=== PATIENT | female | born 1965 | race Caucasian/White ===

== ENCOUNTER 2023-04-16 10:41 | Outpatient (CLI) | payer MEDICARE ==
[~2023-04-16 10:41] MED LIST: Iopamidol 370 76% 100 ML VIAL ONE
== END 2023-04-16 10:42 | disposition home or self-care (01) ==
LOC: BICCT 10:41
PROVIDERS: ATTEND Radiology Radiation Oncology
DX: C05.1 Malignant neoplasm of soft palate (principal); I70.8 Atherosclerosis of other arteries
CPT/HCPCS: 70491; 71260

== ENCOUNTER 2023-04-24 08:59 | Outpatient (CLI) | payer MEDICARE | END 2023-04-24 09:00 | disposition home or self-care (01) | LOC: SCSMRI 08:59 | PROVIDERS: ATTEND Radiology Radiation Oncology | DX: C05.1 Malignant neoplasm of soft palate (principal) | CPT/HCPCS: 70543 ==

== ENCOUNTER 2023-10-22 12:30 | Outpatient (CLI) | payer MEDICARE | END 2023-10-22 12:31 | disposition home or self-care (01) | LOC: PET 12:30 | PROVIDERS: ATTEND Radiology Radiation Oncology | DX: C05.1 Malignant neoplasm of soft palate (principal); R59.0 Localized enlarged lymph nodes | CPT/HCPCS: 78815; A9552 ==

== ENCOUNTER 2023-11-01 09:37 | Outpatient (CLI) | payer MEDICARE ==
[2023-11-01] MEDS ORDERED: Iopamidol 370 76% 100 ML VIAL ONE (11:41)
== END 2023-11-01 09:38 | disposition home or self-care (01) ==
LOC: BICCT 09:37
PROVIDERS: ATTEND Radiology Radiation Oncology
DX: C05.1 Malignant neoplasm of soft palate (principal); I89.8 Other specified noninfective disorders of lymphatic vessels and lymph nodes
CPT/HCPCS: 70491; 82565; Q9967

== ENCOUNTER 2024-02-26 11:00 | Outpatient (CLI) | payer MEDICARE | END 2024-02-26 11:01 | disposition home or self-care (01) | LOC: PET 11:00 | PROVIDERS: ATTEND Internal Medicine | DX: C10.8 Malignant neoplasm of overlapping sites of oropharynx (principal) | CPT/HCPCS: 78815; A9552 ==

== ENCOUNTER 2024-05-08 10:15 | Outpatient (CLI) | payer MEDICARE | END 2024-05-08 10:16 | disposition home or self-care (01) | LOC: PET 10:15 | PROVIDERS: ATTEND Internal Medicine | DX: C10.8 Malignant neoplasm of overlapping sites of oropharynx (principal) | CPT/HCPCS: 78815; A9552 ==

== ENCOUNTER 2024-12-07 11:45 | Outpatient (CLI) | payer MEDICARE | END 2024-12-07 11:46 | disposition home or self-care (01) | LOC: PET 11:45 | PROVIDERS: ATTEND Internal Medicine | DX: M79.601 Pain in right arm (principal); M54.2 Cervicalgia; C10.8 Malignant neoplasm of overlapping sites of oropharynx; M25.531 Pain in right wrist; Z79.899 Other long term (current) drug therapy | CPT/HCPCS: 78815; A9552 ==

== ENCOUNTER 2025-03-16 10:15 | Outpatient (CLI) | payer MEDICARE | END 2025-03-16 10:16 | disposition home or self-care (01) | LOC: PET 10:15 | PROVIDERS: ATTEND Internal Medicine | DX: C10.8 Malignant neoplasm of overlapping sites of oropharynx (principal); M25.531 Pain in right wrist; M54.2 Cervicalgia; M79.601 Pain in right arm; Z79.899 Other long term (current) drug therapy | CPT/HCPCS: 78815; A9552 ==

== ENCOUNTER 2025-04-09 10:54 | Outpatient (CLI) | payer MEDICARE ==
[2025-04-09] MEDS ORDERED: E-Z-HD 98% W/W 340GM BOT (x-ray ONLY) ONE (11:13)
[2025-04-09] MEDS ORDERED: Barium Sulfate 96% 176 GM BOT (xray ONLY) ONE (11:13)
== END 2025-04-09 10:55 | disposition home or self-care (01) ==
LOC: RAD 10:54
PROVIDERS: ATTEND Surgery
DX: L98.8 Other specified disorders of the skin and subcutaneous tissue (principal)
CPT/HCPCS: 20501; 76080; Q9967; 74220